=== PATIENT | male | born 1940 | race Caucasian/White ===

== ENCOUNTER 2020-03-31 03:11 | Inpatient (IN) ==
[2020-03-31] MEDS ORDERED: Polyethylene Glycol 3350 17 GM PACKET PO PRN (04:37)
[2020-03-31] MEDS ORDERED: Senna TAB 8.6 mg TAB PO PRN (04:37)
[2020-03-31] MEDS: Morphine 2 MG/ML SYRINGE IV PRN ×2 (05:44→10:05)
[2020-03-31] MEDS: NS 0.9% 1000 ml BAG 1,000 ML IV SCH ×2 (05:45→23:49)
[2020-03-31 06:04] LABS: ABS Eosinophils 0.1 10^3/ul (0-0.6); ABS Lymphocytes 0.7 10^3/ul (1.0-4.8); ABS Monocytes 0.4 10^3/ul (0-0.8); ABS Neutrophils 4.9 10^3/ul (1.5-7.7); Eosinophil % 1.9 %; Hematocrit 39 % (42-52); Hemoglobin 13.6 g/dL (14.0-18.0); Lymphocyte % 10.8 %; Mean Corpuscular HGB Conc 35 g/dL (31-36); Mean Corpuscular Hemoglobin 32 pg (27-31); Mean Corpuscular Volume 91 fL (80-94); Platelet Count 145 10^3/uL (150-450); Red Blood Count 4.25 10^6 /uL (4.18-5.48); Red Cell Distribution Width 14 % (10-15); White Blood Count 6.1 10^3/uL (3.5-10.8)
[2020-03-31 06:22] LABS: BUN/Creatinine Ratio 21.4 (8-20); Calcium 8.4 mg/dL (8.6-10.3); EGFR African American 89.3 (>60); EGFR Non-African American 73.8 (>60); Potassium 4.4 mmol/L (3.5-5.0)
[2020-03-31] MEDS ORDERED: Bupivacaine 0.5% SDV PF 30ML VIAL ONE ×2 (10:08→12:46)
[2020-03-31] MEDS ORDERED: Lidocaine 2% PF 5 ML VIAL ONE (10:13)
[2020-03-31] MEDS ORDERED: Dexamethasone IV 4 MG/ML VIAL 1 ml VIAL ONE (10:13)
[2020-03-31] MEDS ORDERED: Ondansetron 4 mg VIAL 2 MG/ML 2 ml VIAL ONE (10:13)
[2020-03-31] MEDS ORDERED: fentaNYL 100 mcg/2 ml 50 MCG/ML VIAL ONE ×4 (10:13→16:43)
[2020-03-31] MEDS ORDERED: Propofol 10 MG/ML 20 ML BTL ONE (10:13)
[2020-03-31] MEDS ORDERED: Midazolam 5 mg/5 ml VIAL 1 mg/ml 5 ml VIAL (5 mg) ONE (10:14)
[2020-03-31] MEDS ORDERED: Ketamine HCL 50 mg/ml 10 ml VIAL (500 MG) ONE (10:14)
[2020-03-31] MEDS ORDERED: Buffered Lidocaine 1% SYRIN 1 ml INTRADERM ONE (11:38)
[2020-03-31] MEDS ORDERED: ceFAZolin 2 GM in NS PREMIX 2 GM/100 ML BAG IVPB ONE (11:50)
[2020-03-31] MEDS ORDERED: ROPIVACAINE 5 MG/ML 30 ML BTL (0.5%) ONE (12:42)
[2020-03-31] MEDS ORDERED: Midazolam 2 mg/2 ml VIAL 1 mg/ml 2 ml VIAL (2 mg) ONE (12:46)
[2020-03-31] MEDS ORDERED: Rocuronium 50 mg VIAL 10 mg/ml 5 ml VIAL (50 mg) ONE (15:03)
[2020-03-31] MEDS ORDERED: Ondansetron 4 mg VIAL 2 MG/ML 2 ml VIAL IV PRN (15:22)
[2020-03-31] MEDS ORDERED: HYDROmorphone 1 MG/1 ML SYRINGE IV PRN (15:22)
[2020-03-31] MEDS ORDERED: Naloxone 0.4 mg VIAL 0.4 mg/ml 1 ml VIAL IV PRN (15:22)
[2020-03-31] MEDS ORDERED: fentaNYL 100 mcg/2 ml 50 MCG/ML VIAL IV PRN (15:22)
[2020-03-31] MEDS ORDERED: Succinylcholine 200 mg VIAL 20 mg/ml 10 ml VIAL (200 mg) ONE (15:44)
[2020-03-31] MEDS ORDERED: Phenylephrine 40 mcg/mL 10mL (400mcg) SYRINGE ONE (15:52)
[2020-03-31] MEDS ORDERED: oxyCODONE/Acetamin 5/325 mg TAB PO PRN (17:05)
[2020-03-31] MEDS: Ondansetron 4 mg VIAL 2 MG/ML 2 ml VIAL IV PRN (18:06)
[2020-03-31] MEDS: ceFAZolin 1 GM* X 3 DOSES POST-OP Q8H (AddVan) IVPB SCH (21:51)
[2020-04-01] MEDS: ceFAZolin 1 GM* X 3 DOSES POST-OP Q8H (AddVan) IVPB SCH ×2 (05:45→15:15)
[2020-04-01 07:30] LABS: INR 1.15 (0.82-1.09)
[2020-04-01] MEDS ORDERED: ZOLEDRONIC ACID IVPB ONE (09:00)
[2020-04-01] MEDS ORDERED: NS 0.9% IVPB ONE (09:00)
[2020-04-01] MEDS: NS 0.9% 1000 ml BAG 1,000 ML IV SCH ×2 (12:01→23:06)
[2020-04-01] MEDS: Magnesium Hydroxide LIQ 30 ML UDC PO PRN (20:40)
[2020-04-02] MEDS: Magnesium Hydroxide LIQ 30 ML UDC PO PRN (08:42)
[2020-04-02] MEDS: NS 0.9% 1000 ml BAG 1,000 ML IV SCH ×2 (09:09→21:47)
[2020-04-02 09:10] LABS: ABS Eosinophils 0.1 10^3/ul (0-0.6); ABS Lymphocytes 0.1 10^3/ul (1.0-4.8); ABS Monocytes 0.1 10^3/ul (0-0.8); Eosinophil % 1.1 %; Hematocrit 29 % (42-52); Hemoglobin 10.2 g/dL (14.0-18.0); Mean Corpuscular HGB Conc 35 g/dL (31-36); Mean Corpuscular Hemoglobin 32 pg (27-31); Mean Corpuscular Volume 91 fL (80-94); Mean Platelet Volume 7.7 fL (7.4-10.4); Platelet Count 129 10^3/uL (150-450); Red Blood Count 3.22 10^6 /uL (4.18-5.48); Red Cell Distribution Width 14 % (10-15); White Blood Count 6.3 10^3/uL (3.5-10.8)
[2020-04-02 09:28] LABS: Albumin 3.1 g/dL (3.2-5.2); Albumin/Globulin Ratio 1.2 (1-3); BUN/Creatinine Ratio 20.7 (8-20); Calcium 7.7 mg/dL (8.6-10.3); EGFR African American 73.5 (>60); EGFR Non-African American 60.7 (>60); Globulin 2.6 g/dL (2-4); Potassium 4.1 mmol/L (3.5-5.0); Total Bilirubin 0.7 mg/dL (0.2-1.0); Total Protein 5.7 g/dL (6.4-8.9)
[2020-04-02] MEDS ORDERED: NS 0.9% 500 ml BAG 500 ML IV ONE (15:22)
[2020-04-02 19:00] LABS: Urine Appearance Turbid; Urine Bilirubin Negative (Negative); Urine Blood 3+ (Negative); Urine Color Amber; Urine Glucose 1+(50 mg/dL) (Negative); Urine Ketones Negative (Negative); Urine Nitrite Negative (Negative); Urine Protein 2+(100 mg/dL) (Negative); Urine Specific Gravity 1.021 (1.010-1.030); Urine Urobilinogen Negative (Negative)
[2020-04-02 19:03] LABS: Urine Bacteria Absent (Absent); Urine Red Blood Cell 3+(>10/hpf) (Absent); Urine White Blood Cell Absent (Absent)
[2020-04-02] MEDS: Ondansetron 4 mg VIAL 2 MG/ML 2 ml VIAL IV PRN (21:47)
[2020-04-03 04:28] LABS: ABS Eosinophils 0.1 10^3/ul (0-0.6); ABS Lymphocytes 0.3 10^3/ul (1.0-4.8); ABS Monocytes 0.3 10^3/ul (0-0.8); ABS Neutrophils 3.4 10^3/ul (1.5-7.7); Eosinophil % 3.2 %; Hematocrit 26 % (42-52); Hemoglobin 8.8 g/dL (14.0-18.0); Lymphocyte % 6.9 %; Mean Corpuscular HGB Conc 34 g/dL (31-36); Mean Corpuscular Hemoglobin 32 pg (27-31); Mean Corpuscular Volume 92 fL (80-94); Mean Platelet Volume 7.2 fL (7.4-10.4); Platelet Count 113 10^3/uL (150-450); Red Cell Distribution Width 14 % (10-15); White Blood Count 4.1 10^3/uL (3.5-10.8)
[2020-04-03 04:43] LABS: BUN/Creatinine Ratio 23.1 (8-20); EGFR African American 79.8 (>60); Potassium 4.3 mmol/L (3.5-5.0)
[2020-04-03 11:35] VITALS: BP 95/50
== END 2020-04-03 13:40 | DRG 981 ==
LOC: SSU 03:11
PROVIDERS: ADMIT Internal Medicine; ATTEND Internal Medicine

== ENCOUNTER 2022-03-04 06:31 | Observation (INO) ==
[~2022-03-04 06:31] MED LIST: Buffered Lidocaine 1% SYRIN 1 ml INTRADERM ONE; HYDROcodone/ACETAMIN 5/325 mg TAB PO PRN; Lactated Ringers 1000 ml BAG 1,000 ML IV SCH; Metoclopramide 5 MG/ML VIAL (10 mg) IV PRN; Naloxone 0.4 mg VIAL 0.4 mg/ml 1 ml VIAL IV PRN; Ondansetron 4 mg VIAL 2 MG/ML 2 ml VIAL IV PRN; fentaNYL 100 mcg/2 ml 50 MCG/ML VIAL IV PRN
[2022-03-04] MEDS ORDERED: ceFAZolin 2 GM PREMIX 2 GM/50 ML BAG ONE (06:55)
[2022-03-04] MEDS ORDERED: Dexamethasone IV 4 MG/ML VIAL 1 ml VIAL ONE (07:03)
[2022-03-04] MEDS ORDERED: Lidocaine 2% PF 5 ML VIAL ONE (07:03)
[2022-03-04] MEDS ORDERED: fentaNYL 100 mcg/2 ml 50 MCG/ML VIAL ONE (07:03)
[2022-03-04] MEDS ORDERED: Ondansetron 4 mg VIAL 2 MG/ML 2 ml VIAL ONE (07:03)
[2022-03-04] MEDS ORDERED: Bupivacaine 0.5% PF 10 ML SDV VIAL INJ ONE (09:12)
[2022-03-04] MEDS ORDERED: Phenylephrine IV 10 MG/ML 1 ml VIAL ONE (10:24)
[2022-03-04] MEDS ORDERED: Ondansetron ODT 4 mg TAB 4 MG TAB PO PRN (10:34)
[2022-03-04] MEDS ORDERED: Magnesium Hydroxide LIQ 30 ML UDC PO PRN (10:34)
[2022-03-04] MEDS ORDERED: Ondansetron 4 mg VIAL 2 MG/ML 2 ml VIAL IV PRN (10:34)
[2022-03-04] MEDS ORDERED: Lactulose 30 ml UDC PO PRN (10:34)
[2022-03-04] MEDS ORDERED: Morphine 2 MG/ML SYRINGE IV PRN (10:34)
[2022-03-04] MEDS ORDERED: Lactated Ringers 1000 ml BAG 1,000 ML IV SCH (11:00)
[2022-03-04] MEDS ORDERED: ceFAZolin 1 GM ADVAN 1 GM in NS 0.9% 50 ML 50 ML IVPB SCH (11:00)
[2022-03-04] MEDS ORDERED: Glycopyrrolate IV 0.2 MG/ML 1 ML VIAL ONE (11:38)
[2022-03-04] MEDS ORDERED: HYDROcodone/ACETAMIN 5/325 mg TAB ONE (12:15)
[2022-03-04] MEDS: ceFAZolin 1 GM ADVAN 1 GM in NS 0.9% 50 ML 50 ML IVPB SCH (17:01)
[2022-03-04] MEDS: Magnesium Hydroxide LIQ 30 ML UDC PO SCH ×2 (20:47→21:34)
[2022-03-05] MEDS: ceFAZolin 1 GM ADVAN 1 GM in NS 0.9% 50 ML 50 ML IVPB SCH ×2 (01:06→08:00)
[2022-03-05 05:56] LABS: Hematocrit 30 % (42-52); Hemoglobin 9.9 g/dL (14.0-18.0); Mean Platelet Volume 7.4 fL (7.4-10.4); Platelet Count 174 10^3/uL (150-450)
[2022-03-05 06:24] LABS: Calcium 8.5 mg/dL (8.6-10.3); eGFR CKD-EPI 57.9 (>60)
[2022-03-05 06:25] LABS: Potassium 5.2 mmol/L (3.5-5.0)
[2022-03-05] MEDS: Magnesium Hydroxide LIQ 30 ML UDC PO SCH (08:02)
[2022-03-05 08:42] VITALS: BP 135/84
[2022-03-05 08:59] LABS: Total Iron Binding Capacity 354 mcg/dL (250-450); Transferrin 253 mg/dL (203-362)
[2022-03-05] MEDS ORDERED: Vitamin THERAPEUTIC TAB PO SCH (09:00)
[2022-03-05 09:05] LABS: % Iron Saturation 6 % (15-55); Iron < 20 ug/dL (50-212); Unsaturated Iron Binding 334 ug/dL
[2022-03-05 09:19] LABS: Ferritin 30.5 ng/mL (24-336)
[2022-03-05] MEDS ORDERED: Iron Sucrose 200 MG in NS 0.9% 100 ml BAG 100 ML IVPB ONE (10:36)
[2022-03-05] MEDS ORDERED: SODIUM ZIRCONIUM CYCLOSILICATE 10 GM PACKET PO ONE (10:36)
== END 2022-03-05 10:50 | disposition home or self-care (01) ==
LOC: OR 06:31 → SSU 13:44 → INTOOBSV 13:44
PROVIDERS: ADMIT Orthopaedic Surgery Adult Reconstructive Orthopaedic Surgery; ATTEND Orthopaedic Surgery Adult Reconstructive Orthopaedic Surgery

== ENCOUNTER 2022-09-29 09:45 | Observation (INO) ==
[~2022-09-29 09:45] MED LIST changes: -HYDROcodone/ACETAMIN 5/325 mg TAB PO PRN; -Metoclopramide 5 MG/ML VIAL (10 mg) IV PRN
[2022-09-29] MEDS ORDERED: ceFAZolin 2 GM PREMIX 2 GM/50 ML BAG ONE (10:31)
[2022-09-29] MEDS ORDERED: Bupivacaine 0.5% SDV PF 30ML VIAL ONE (11:06)
[2022-09-29] MEDS ORDERED: Midazolam 2 mg/2 ml VIAL 1 mg/ml 2 ml VIAL (2 mg) ONE (11:06)
[2022-09-29] MEDS ORDERED: Lidocaine 2% PF 5 ML VIAL ONE ×2 (11:06→13:25)
[2022-09-29] MEDS ORDERED: Dexamethasone IV 4 MG/ML VIAL 1 ml VIAL ONE ×2 (11:06→13:51)
[2022-09-29] MEDS ORDERED: ROPIVACAINE 5 MG/ML 30 ML BTL (0.5%) ONE (13:04)
[2022-09-29] MEDS ORDERED: Phenylephrine IV 10 MG/ML 1 ml VIAL ONE (13:29)
[2022-09-29] MEDS ORDERED: Glycopyrrolate IV 0.2 MG/ML 1 ML VIAL ONE (13:49)
[2022-09-29] MEDS ORDERED: Ondansetron 4 mg VIAL 2 MG/ML 2 ml VIAL ONE (13:51)
[2022-09-29] MEDS ORDERED: Propofol 10 MG/ML 20 ML BTL ONE (14:30)
[2022-09-29] MEDS ORDERED: Ondansetron ODT 4 mg TAB 4 MG TAB PO PRN (16:04)
[2022-09-29] MEDS ORDERED: Morphine 2 MG/ML SYRINGE IV PRN (16:04)
[2022-09-29] MEDS ORDERED: Ondansetron 4 mg VIAL 2 MG/ML 2 ml VIAL IV PRN (16:04)
[2022-09-29] MEDS ORDERED: Lactulose 30 ml UDC PO PRN (16:04)
[2022-09-29] MEDS ORDERED: Magnesium Hydroxide LIQ 30 ML UDC PO PRN (16:04)
[2022-09-29] MEDS ORDERED: Lactated Ringers 1000 ml BAG 1,000 ML IV SCH (17:00)
[2022-09-29] MEDS: Magnesium Hydroxide LIQ 30 ML UDC PO SCH (21:47)
[2022-09-29] MEDS: ceFAZolin 1 GM ADVAN 1 GM in NS 0.9% 50 ML 50 ML IVPB SCH (21:47)
[2022-09-30] MEDS: Calcium Carb (TUMS) 500 mg CHEW TAB PO PRN ×2 (04:34→17:00)
[2022-09-30] MEDS: ceFAZolin 1 GM ADVAN 1 GM in NS 0.9% 50 ML 50 ML IVPB SCH ×2 (06:11→13:22)
[2022-09-30 07:08] LABS: Hematocrit 31 % (42-52); Hemoglobin 10.2 g/dL (14.0-18.0); Mean Platelet Volume 7.6 fL (7.4-10.4); Platelet Count 152 10^3/uL (150-450)
[2022-09-30 07:47] LABS: Calcium 8.1 mg/dL (8.6-10.3); Creatinine, Serum 1.34 mg/dL (0.67-1.17); eGFR CKD-EPI 53.2 (>60)
[2022-09-30] MEDS ORDERED: NS 0.9% 250 ml 250 ML IV ONE (09:40)
[2022-09-30] MEDS: NF: DAPAGLIFLOZIN 10 MG TAB (NF) PO SCH (09:41)
[2022-09-30] MEDS: Vitamin THERAPEUTIC TAB PO SCH (09:41)
[2022-09-30] MEDS: Magnesium Hydroxide LIQ 30 ML UDC PO SCH ×2 (09:42→20:55)
[2022-10-01 06:00] LABS: Hematocrit 29 % (42-52); Hemoglobin 9.4 g/dL (14.0-18.0); Mean Platelet Volume 7.7 fL (7.4-10.4); Platelet Count 129 10^3/uL (150-450)
[2022-10-01] MEDS: Magnesium Hydroxide LIQ 30 ML UDC PO SCH (09:11)
[2022-10-01] MEDS: Vitamin THERAPEUTIC TAB PO SCH (09:12)
[2022-10-01] MEDS: NF: DAPAGLIFLOZIN 10 MG TAB (NF) PO SCH (09:37)
[2022-10-01 10:10] VITALS: BP 94/52
== END 2022-10-01 11:30 | disposition home or self-care (01) ==
LOC: SSU 09:45 → OR 09:45
PROVIDERS: ADMIT Orthopaedic Surgery Adult Reconstructive Orthopaedic Surgery; ATTEND Orthopaedic Surgery Adult Reconstructive Orthopaedic Surgery